=== PATIENT | female | born 1965 | race Caucasian/White ===

== ENCOUNTER 2016-06-09 20:03 | Emergency (ER) | payer BC ==
--- NOTE | ~2016-06-09 | CR142 ---
[facility] A Service of [facility] & [facility] RADIOLOGY TEXT RESULTS PATIENT: DIOGENES QUINONES LOCATION: SED : 61 UNIT #: [id number] AGE: [address]: Del Cam MD SEX: F ORDER DR: [id number] [address] [address] [id number] E MR#: [id number] Acc #: [id number] NAME: DIOGENES QUINONES : 1965 SEX: F STUDY DATE/TIME: 06/09/2016 19:51 UNIT: SED ROOM: STUDY DESCRIPTION: CR Hand Min 3 Views Rt Attending Physician: Del Cam M.D. Ordering Physician: Del Cam M.D. Primary Care Physician: Alma Martinez M.D. MEDICAL IMAGING REPORT This report is preliminary unless electronic signature is present. EXAM Right hand 3 views HISTORY Hand pain and bruising since yesterday. No injury. FINDINGS AP, lateral, and oblique projections of the hand show good mineralization with normal carpal, metacarpal, and phalangeal anatomy without indication of fracture, dislocation, or soft tissue radiopaque foreign body. IMPRESSION Normal hand. Dictated by... Salvador Luna M.D. THIS IS AN ELECTRONICALLY VERIFIED REPORT Salvador Luna M.D. at 06/10/2016 3:55 PM DFL/adore TD: 06/10/2016 08:53 JOB #: [id number] MEDICAL IMAGING REPORT
[~2016-06-09 20:03] MED LIST: ALBUTEROL MININEB NEB; ALBUTEROL17 GM INH; ALBUTEROL20 ml; AMITRYPTYLINE PO; COUMADIN PO; COUMADIN10 MG PO; COUMADIN5 MG PO; COUMADIN7.5 MG PO; DILTIAZEM 24HR120 MG PO; FEVERFEW EXTRACT1 GM MC; LASIX20 MG PO; LOVENOX SUBQ; MAGNESIUM400 MG PO; METOPROLOL SUCC25 MG PO; MIGRANAL; PETADOLEX50 MG PO; PRILOSEC PO; RIZATRIPTAN10 M2 PO; SUMATRIPTAN SU100 MG PO; TOPAMAX200 MG PO; TOPAMAX50 MG PO; TOPIRAMATE200 M1 PO; VITAMIN B-COMPL1 CA1 PO; XYZAL5 MG PO; ZECUITY TD
[2016-06-09 20:20] LABS: INR 3.1; PROTHROMBIN TIME (PATIENT) 35.6 SECONDS (9.5-12.4)
[2016-07-23] MEDS ORDERED: SYMBICORT INH (13:46)
[2016-07-23] MEDS ORDERED: ALBUTEROL MININEB NEB (13:47)
[2016-07-23] MEDS ORDERED: METOPROLOL SUCC25 MG PO (14:18)
[2016-07-23] MEDS ORDERED: MECLIZINE HCL12.5 M2 PO (14:19)
== END 2016-06-09 20:40 | disposition home or self-care (01) ==
LOC: SED 20:03
PROVIDERS: Emergency Medicine
DX: S60.221A Contusion of right hand, initial encounter (principal); Z86.718 Personal history of other venous thrombosis and embolism; X58.XXXA Exposure to other specified factors, initial encounter; Y92.9 Unspecified place or not applicable
CPT/HCPCS: 36415; 73130; 85610; 99283

== ENCOUNTER → 2016-07-31 | Day surgery (SDC) | payer BC ==
[~2016-07-31] MED LIST changes: +ELIQUIS5 MG PO; +FAMOTIDINE20 M1 PO; +HEPARIN 51 UNIT/1 M IV; +HYDROCHLOROTHIA25 MG PO; +KEPPRA500 M1 PO; +MECLIZINE HCL12.5 M2 PO; +PERCOCET5/325 PO; +SYMBICORT INH
--- NOTE | ~2016-07-31 | OR ---
Unit #: [id number] #: [id number] Patient: DIOGENES QUINONES [id number] [address] [address] [id number] O MR#: [id number] NAME: DIOGENES QUINONES ROOM: Date of Procedure: 07/31/2016 Admission Date: 07/31/2016 Surgeon: Wilton Chau M.D. : 1965 Attending Physician: Wilton Chau M.D. Primary Care Physician: Alma Martinez M.D. OPERATIVE REPORT PROCEDURE PERFORMED Colonoscopy to cecum. INDICATIONS FOR PROCEDURE Father with colon cancer. MEDICATIONS Monitored anesthesia. POSTOPERATIVE FINDINGS Good prep. Normal exam to cecum. No polyps, masses, or colitis. PLAN Repeat colonoscopy in 5 years. DESCRIPTION OF PROCEDURE The patient was explained of the procedure, risks, and benefits along with risks and benefits of anesthesia. She was brought to the endoscopy room. Propofol anesthesia was given. Rectal exam was done, which was normal. Colonoscope was lubricated, passed up the rectum, advanced under direct vision all the way to the cecum. Cecum was identified by ileocecal valve and appendiceal orifice. I then started to pull the scope out carefully looking. No polyps, masses, or colitis were seen. Mucosa was normal and healthy. I retroflexed in the rectum and small hemorrhoids were seen. Scope was gently pulled out. She tolerated it well. Dictated by... Noemi Blackman/mena TD: 08/01/2016 00:09 JOB #: [id number] Unit #: [id number] #: [id number] Patient: DIOGENES QUINONES OPERATIVE REPORT Page 1 of 1 X Wilton Chau MD X PROCEDURE OPERATIVE NOTE
== END | disposition home or self-care (01) ==
LOC: COPS 10:43
DX: Z12.11 Encounter for screening for malignant neoplasm of colon (principal); Z80.0 Family history of malignant neoplasm of digestive organs; K64.9 Unspecified hemorrhoids

== ENCOUNTER 2016-08-08 17:15 | Emergency (ER) | payer BC ==
--- NOTE | ~2016-08-08 | CR230 ---
[facility] A Service of [facility] & [facility] RADIOLOGY TEXT RESULTS PATIENT: DIOGENES QUINONES LOCATION: [facility] : 61 UNIT #: [id number] AGE: [address]: BHAVIN SIMON SEX: F ORDER DR: [id number] [facility] [address] [place], [place] [address] [id number] E MR#: [id number] Acc #: [id number] NAME: DIOGENES QUINONES. : 1965 SEX: F STUDY DATE/TIME: 08/08/2016 17:59 UNIT: [facility] ROOM: STUDY DESCRIPTION: CR Shoulder Min 2 View Rt Attending Physician: Bhavin Simon Aprn Ordering Physician: Bhavin Simon Aprn Primary Care Physician: Alma Martinez M.D. MEDICAL IMAGING REPORT This report is preliminary unless electronic signature is present EXAM Right shoulder, 4 views. DATE OF EXAM 08/08/2016 HISTORY Right shoulder pain and swelling, status post fall 08/07/2016. FINDINGS AP view with internal and external rotation of the shoulder girdle shows satisfactory relationship of the humeral head and glenoid fossa. The joint space is normal. There is no identifiable fracture or dislocation or bony destructive process about the shoulder girdle anatomy. The acromioclavicular joint is normal. There is no radiopaque foreign body in the region. IMPRESSION Normal right shoulder. Dictated by... Akin Gabriel M.D. THIS IS AN ELECTRONICALLY VERIFIED REPORT Akin Gabriel M.D. at 08/09/2016 3:16 PM SHOSHANA/richardson TD: 08/08/2016 22:05 JOB #: [id number] MEDICAL IMAGING REPORT Page 1 of 1 COPY
[~2016-08-08 17:15] MED LIST changes: -ELIQUIS5 MG PO; -FAMOTIDINE20 M1 PO; -HEPARIN 51 UNIT/1 M IV; -HYDROCHLOROTHIA25 MG PO; -KEPPRA500 M1 PO; -PERCOCET5/325 PO
== END 2016-08-08 19:11 | disposition home or self-care (01) ==
LOC: CFTX 17:15
DX: S46.011A Strain of muscle(s) and tendon(s) of the rotator cuff of right shoulder, initial encounter (principal); I10 Essential (primary) hypertension; J45.909 Unspecified asthma, uncomplicated; Z88.0 Allergy status to penicillin; Z88.8 Allergy status to other drugs, medicaments and biological substances; Z79.899 Other long term (current) drug therapy; Z87.891 Personal history of nicotine dependence; W18.30XA Fall on same level, unspecified, initial encounter; Y92.098 Other place in other non-institutional residence as the place of occurrence of the external cause
CPT/HCPCS: 73030; 99283

== ENCOUNTER 2016-10-13 18:23 | Emergency (ER) | payer BC ==
--- NOTE | ~2016-10-13 | CR72 ---
[facility] A Service of [facility] & [facility] RADIOLOGY TEXT RESULTS PATIENT: DIOGENES QUINONES LOCATION: [facility] : 61 UNIT #: [id number] AGE: [address]: Martell Lopez MD SEX: F ORDER DR: [id number] [facility] [address] [place], [place] [address] [id number] E MR#: [id number] Acc #: [id number] NAME: DIOGENES QUINONES : 1965 SEX: F STUDY DATE/TIME: 10/13/2016 21:19 UNIT: [facility] ROOM: STUDY DESCRIPTION: CR Chest Single View Portable Attending Physician: Martell Lopez M.D. Ordering Physician: Martell Lopez M.D. Primary Care Physician: Alma Martinez M.D. MEDICAL IMAGING REPORT This report is preliminary unless electronic signature is present EXAM Portable chest, 10/13/2016. HISTORY Shortness of breath generalized weakness, lethargy and vomiting beginning today. Benign essential hypertension, asthma. FINDINGS The heart is normal in size. There is poor inspiratory result with ill-defined infiltrate in the left upper lobe which is stable compared with 08/18/2010, presumably representing fibrosis. Clinical correlation is recommended. Poor inspiratory result with bibasilar atelectasis. There are no pleural effusions. IMPRESSION Ill-defined infiltrate in the left upper lobe is stable compared with previous chest radiograph 08/18/2010. This presumably represents focal fibrosis but clinical correlation is recommended. Dictated by... Akin Gabriel M.D. THIS IS AN ELECTRONICALLY VERIFIED REPORT Akin Gabriel M.D. at 10/14/2016 2:20 PM SHOSHANA/richardson TD: 10/14/2016 01:20 JOB #: [id number] MEDICAL IMAGING REPORT Page 1 of 1 COPY
--- NOTE | ~2016-10-13 | CT71 ---
[facility] A Service of [facility] RADIOLOGY TEXT RESULTS PATIENT: DIOGENES QUINONES LOCATION: [facility] : 61 UNIT #: [id number] AGE: [address]: Martell Lopez MD SEX: F ORDER DR: [id number] [facility] [address] [place], [place] [address] [id number] E MR#: [id number] Acc #: [id number] NAME: DIOGENES QUINONES : 1965 SEX: F STUDY DATE/TIME: 10/13/2016 21:11 UNIT: [facility] ROOM: STUDY DESCRIPTION: CT Head Wo Contrast Attending Physician: Martell Lopez M.D. Ordering Physician: Martell Lopez M.D. Primary Care Physician: Alma Martinez M.D. MEDICAL IMAGING REPORT This report is preliminary unless electronic signature is present EXAM CT head without contrast, dated 10/13/2016. COMPARISON CT head with contrast, dated 03/24/2012. HISTORY Patient fell this morning with weakness, vomiting. Patient was lying on the floor all day. TECHNIQUE CT of the head was obtained without contrast in the axial plane as per the protocol. This CT exam was performed with one or more of the following radiation dose reduction techniques: automatic exposure control, adjustment of mA and/or kV according to patient size, and iterative reconstruction. FINDINGS There is a large hypodense lesion in the left frontal temporal extraaxial region with hyperdensity along its medial inner aspect abutting the brain. The hyperdense component is most prominent in the inferior left temporal portion of the hypodense lesion extending towards the floor of the middle cranial fossa on the left side. It measures about 7.5 mm in maximum thickness. The hypodense component is most prominent in the left frontal region, though it extends to the left temporal region also. Its maximum thickness is 1.7 cm in the left frontal aspect. There is effacement of the left lateral ventricle and a 1.5 cm midline shift to the right with trapping of the right lateral ventricle, particularly, the right temporal horn. It is new when compared to the prior study. Paranasal sinuses and mastoid air cells are well aerated. Bilateral anterior clinoid processes are pneumatized. Bones, orbits with the ocular structures are unremarkable. [facility] A Service of [facility] RADIOLOGY TEXT RESULTS PATIENT: DIOGENES QUINONES LOCATION: [facility] : 61 UNIT #: [id number] AGE: [address]: Martell Lopez MD SEX: F ORDER DR: IMPRESSION 1. Large left fronto- temporal subdural hematoma is noted. It has a hypodense component measuring up to 1.7 cm in maximum thickness in the left lateral fronto- temporal region. It has a more medial inner hyperdense component, most prominent in the left temporal region measuring about 7.5 mm in thickness. It is most suggestive of a subdural hematoma of varying age, including acute to subacute components. 2. Severe midline shift to the right measuring 1.5 cm with trapping of the right lateral ventricle, particularly the right temporal horn. 3. Findings were discussed with Dr. Martell Lopez of [facility] at 10 p.m. on 10/13/2016. Dictated by... Erin Jones M.D. THIS IS AN ELECTRONICALLY VERIFIED REPORT Erin Jones M.D. at 10/14/2016 12:00 PM CPR/jt TD: 10/14/2016 01:26 JOB #: [id number] MEDICAL IMAGING REPORT Page 1 of 1 COPY
--- NOTE | ~2016-10-13 | EKG ---
PATIENT: DIOGENES QUINONES UNIT #: [id number] Ventricular Rate: 77 BPM Atrial Rate: 77 BPM P-R Interval: 152 ms QRS Duration: 86 ms Q-T Interval: 400 ms QTC Calculation(Bezet): 452 ms P [place]: 20 degrees Calculated R [place]: -20 degrees Calculated T [place]: 18 degrees Diagnosis Line: Normal sinus rhythm Diagnosis Line: Moderate voltage criteria for LVH, may be normal Diagnosis Line: variant Diagnosis Line: Borderline ECG Diagnosis Line: No previous ECGs available Diagnosis Line: Confirmed by TOMEKA DELCID MD ([id number]) on Diagnosis Line: 10/15/2016 10:32:24 AM INTERPRETING MD: BHAVIN GUIDO
--- NOTE | ~2016-10-13 | CR72 ---
[facility] A Service of [facility] & [facility] RADIOLOGY TEXT RESULTS PATIENT: DIOGENES QUINONES LOCATION: [facility] : 61 UNIT #: [id number] AGE: [address]: Martell Lopez MD SEX: F ORDER DR: [id number] [facility] [address] [place], [place] [address] [id number] E MR#: [id number] Acc #: [id number] NAME: DIOGENES QUINONES : 1965 SEX: F STUDY DATE/TIME: 10/13/2016 22:22 UNIT: [facility] ROOM: STUDY DESCRIPTION: CR Chest Single View Portable Attending Physician: Martell Lopez M.D. Ordering Physician: Martell Lopez M.D. Primary Care Physician: Alma Martinez M.D. MEDICAL IMAGING REPORT This report is preliminary unless electronic signature is present EXAM Portable chest INDICATIONS Endotracheal tube placement. FINDINGS This portable view of the chest is compared with one from earlier today. An endotracheal tube has been added and the tip is 2 cm above the marcella. There are low lung volumes. There appear to be posttraumatic change involving the left ribs. No infiltrates are visible. The heart size is normal. Dictated by... Alvarez Dunn M.D. THIS IS AN ELECTRONICALLY VERIFIED REPORT Alvarez Dunn M.D. at 10/14/2016 5:49 AM SALMA/tiffanie TD: 10/14/2016 02:02 JOB #: [id number] MEDICAL IMAGING REPORT Page 1 of 1 COPY
[2016-10-13 20:25] LABS: BASOPHIL% 0.2 % (0-2.5); EOSINOPHIL% 0.3 % (0.0-7.0); HEMATOCRIT 39.1 % (35.0-45.0); HEMOGLOBIN 12.7 gm/dL (12.0-16.0); LYMPHOCYTE# 1.1 X10e3 (1.0-3.5); LYMPHOCYTE% 11.1 % (17.0-45.0); MEAN CELL VOLUME 93.7 FL (83-96); MEAN CORPUSCULAR HEMOGLOBIN 30.5 PG (28-34); MEAN CORPUSCULAR HGB CONC 32.5 g/dL (30-36); MEAN PLATELET VOLUME 7.5 FL (6.5-11.5); MONOCYTE# 0.6 X10e3 (0-1.0); MONOCYTE% 5.9 % (3.0-12.0); NEUTROPHIL# 8.4 X10e3 (1.5-7.1); NEUTROPHIL% 82.5 % (40-75); PLATELET COUNT 147 X10e3 (140-420); RED BLOOD COUNT 4.17 X10e (3.90-5.30); RED CELL DISTRIBUTION WIDTH 13.6 % (11.0-15.5); WHITE BLOOD COUNT 10.1 X10e3 (4.0-10.5)
[2016-10-13 20:33] LABS: DIFF IND NO
[2016-10-13 20:43] LABS: URINE SOURCE CLEAN CATCH
[2016-10-13 20:52] LABS: ALBUMIN SERUM 3.7 g/dL (3.5-5.0); BILIRUBIN, DIRECT 0.1 mg/dL (0.0-0.2); BILIRUBIN,INDIRECT 0.5 mg/dL (0.0-0.9); BILIRUBIN,TOTAL 0.6 mg/dL (0.2-2.0); BUN/CREATININE RATIO 15.55; CALCIUM SERUM 8.7 mg/dL (8.4-10.2); CREATININE SERUM 0.9 mg/dL (0.6-1.4); PROTEIN TOTAL SERUM 7.4 g/dL (6.0-8.3)
[2016-10-13 20:53] LABS: URINE APPEARANCE CLOUDY; URINE BILIRUBIN NEG (NEG); URINE BLOOD NEG (NEG); URINE COLOR DK YELLOW; URINE GLUCOSE NEG (NEG); URINE KETONE NEG (NEG); URINE LEUKOCYTE ESTERASE NEG (NEG); URINE NITRATE NEG (NEG); URINE PROTEIN NEG (NEG); URINE SPECIFIC GRAVITY 1.034 (1.003-1.035)
[2016-10-13 20:57] LABS: CULTURE INDICATED? NO
[2016-10-13 21:07] LABS: AMPHETAMINE NEG (NEG); BARBITURATES NEG (NEG); BENZODIAZEPINES NEG (NEG); COCAINE NEG (NEG); MARIJUANA NEG (NEG); OPIATES NEG (NEG); TRICYCLIC ANTIDEPRESSANTS POS (NEG); U METHADONE NEG (NEG)
[2016-10-13 22:31] LABS: POC - CKMB 2.4 ng/mL (0.0-7.9); POC - TROPONIN <0.05 ng/mL (<=0.05)
[2016-10-13 22:59] LABS: INR 2.6; PROTHROMBIN TIME (PATIENT) 28.5 SECONDS (10.0-11.7)
== END 2016-10-13 23:58 | disposition hospice, home (50) ==
LOC: CED 18:23
PROVIDERS: Emergency Medicine
DX: S06.5X0A Traumatic subdural hemorrhage without loss of consciousness, initial encounter (principal); I10 Essential (primary) hypertension; E66.9 Obesity, unspecified; F41.9 Anxiety disorder, unspecified; Z86.718 Personal history of other venous thrombosis and embolism; Z88.0 Allergy status to penicillin; Z88.1 Allergy status to other antibiotic agents; Z88.8 Allergy status to other drugs, medicaments and biological substances; Z79.899 Other long term (current) drug therapy; W19.XXXA Unspecified fall, initial encounter
CPT/HCPCS: 31500; 36415; 51702; 70450; 71010; 80048; 80076; 80307; 81003; 82550; 82553; 84443; 84484; 84703; 85025; 85610; 86900; 86901; 93005; 94002; 96365; 96375; 99291; J0330; J2250; J3010; J3430

== ENCOUNTER 2016-11-24 13:51 | Inpatient (IN) | payer BC ==
[~2016-11-24] VITALS: Ht 170.2 cm; Wt 118.4 kg
--- NOTE | ~2016-11-24 | DS ---
Unit #: [id number] #: [id number] Patient: DIOGENES QUINONES [id number] [address] [address] [id number] I MR#: [id number] NAME: DIOGENES QUINONES ROOM: 339 Age: 51 Sex: F Admission Date: 11/24/2016 : 1965 Discharge Date: 11/26/2016 Attending Physician: Alma Martinez M.D. Referring Physician: Alma Martinez M.D. Primary Care Physician: Alma Martinez M.D. DISCHARGE SUMMARY DISCHARGE DIAGNOSES 1. Lower extremity deep venous thrombosis. 2. History of deep venous thrombosis in the past. 3. History of subdural hematoma. 4. History of migraine headache. 5. Hypertension. 6. Obesity. DISCHARGE MEDICATIONS 1. Hydrochlorothiazide 25 mg p.o. daily. 2. Percocet 5/325, one tablet p.o. q.4-6 p.r.n. for pain in the lower extremity. 3. Ventolin two puffs inhaler q.6 p.r.n. for shortness of air. 4. Eliquis 10 mg b.i.d. 5. Keppra 500 mg p.o. b.i.d. 6. Pepcid 20 mg p.o. b.i.d. CONSULTS DURING THIS HOSPITAL STAY Dr. Kim - Hematology. LABS AND DIAGNOSTICS AND PROCEDURES DURING THIS HOSPITAL STAY Lower extremity ultrasound showed a relatively recent new DVT on the left. HISTORY OF PRESENT HOSPITAL STAY AND ACTIVE PROBLEMS Please refer to H and P for initial presentation on this female which was dictated by me. ACTIVE PROBLEMS AND DIAGNOSES 1. 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 Patient initially was on Coumadin. Unfortunately, she had an event when she fell and sustained a subdural hematoma. Since then, patient was on only subcu heparin. She noticed left lower extremity pain and swelling, went to see her primary care physician, Dr. Martinez, who did the ultrasound which ultrasound showed a relatively new recent recurrent DVT. Patient was evaluated by Dr. Kim and started on Eliquis. Patient also was evaluated by PT/OT and she is currently stable to be discharged on Eliquis with outpatient followup with Dr. Kim. 2. History of subdural hematoma, as above. Patient needs to be extremely careful with the fall precautions which was discussed on numerous occasions with this patient. Again, status post PT/OT evaluation, stable to be discharged home. 3. History of migraine headaches, stable. 4. Hypertension, started on some hydrochlorothiazide. 5. Obesity. Patient would benefit with some weight loss. Unit #: [id number] #: [id number] Patient: DIOGENES QUINONES DISCHARGE MEDICATIONS As above. DISPOSITION Going home with outpatient followup with Dr. Martinez and outpatient followup with Dr. Kim. Dictated by... Yobany Gordon M.D. OC/df TD: 11/27/2016 05:40 JOB #: [id number] DISCHARGE SUMMARY Page 1 of 1 X Yobany Gordon MD X DISCHARGE SUMMARY
--- NOTE | ~2016-11-24 | BMI ---
[facility] Nutrition Therapy DATE: 11/25/16 Patient: DIOGENES QUINONES Physician: MAHESH Address: [address] [place] [address] ROAD Room/Bed: [address] [place] [address], Zip: [place] [address] Admit Date: 11/24/16 Date of : 61 Height: 5 7 Weight: 260 118.2 HIGH BMI NOTE: DX: 51 y/o female admitted with DVT No updated H&P available ANTHROPOMETRICS: Ht: 67", Wt: 118.2 kg, BMI: 40 (stage III obese) DIET: Healthy heart INTERVENTION: Restricted diet, meds/fluids per MD RECOMMENDATIONS: Continue healthy heart diet to promote a gradual weight loss towards a healthy BMI range. If patient has history of diabetes add consistent carb restriction. Respectfully, Lucía Cam RD, LD [facility] cc: client file
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
[~2016-11-24 13:51] MED LIST changes: -ELIQUIS5 MG PO; -FAMOTIDINE20 M1 PO; -HEPARIN 51 UNIT/1 M IV; -HYDROCHLOROTHIA25 MG PO; -KEPPRA500 M1 PO; -PERCOCET5/325 PO
[2016-11-24] MEDS ORDERED: ALBUTEROL17 GM INH (14:59)
[2016-11-24] MEDS ORDERED: FAMOTIDINE20 M1 PO (14:59)
[2016-11-24] MEDS ORDERED: KEPPRA500 M1 PO (15:01)
[2016-11-24] MEDS ORDERED: HEPARIN 51 UNIT/1 M IV (15:18)
[2016-11-24 15:24] LABS: BASOPHIL% 0.5 % (0-2.5); EOSINOPHIL# 0.2 X10e3 (0-0.7); EOSINOPHIL% 2.4 % (0.0-7.0); HEMATOCRIT 36.3 % (35.0-45.0); HEMOGLOBIN 12.6 gm/dL (12.0-16.0); LYMPHOCYTE# 1.5 X10e3 (1.0-3.5); LYMPHOCYTE% 17.1 % (17.0-45.0); MEAN CELL VOLUME 93.6 FL (83-96); MEAN CORPUSCULAR HEMOGLOBIN 32.4 PG (28-34); MEAN CORPUSCULAR HGB CONC 34.6 g/dL (30-36); MEAN PLATELET VOLUME 7.4 FL (6.5-11.5); MONOCYTE# 0.8 X10e3 (0-1.0); MONOCYTE% 9.3 % (3.0-12.0); NEUTROPHIL# 6.3 X10e3 (1.5-7.1); NEUTROPHIL% 70.7 % (40-75); PLATELET COUNT 183 X10e3 (140-420); RED BLOOD COUNT 3.88 X10e (3.90-5.30); RED CELL DISTRIBUTION WIDTH 13.9 % (11.0-15.5); WHITE BLOOD COUNT 8.9 X10e3 (4.0-10.5)
[2016-11-24 15:25] LABS: DIFF IND NO
[2016-11-24 15:36] LABS: PARTIAL THROMBOPLASTIN TIME 24.9 SECONDS (23.5-31.3)
[2016-11-24 15:46] LABS: PROTHROMBIN TIME (PATIENT) 11.1 SECONDS (10.0-11.7)
[2016-11-24 15:48] LABS: BILIRUBIN, DIRECT 0.2 mg/dL (0.0-0.2); BILIRUBIN,TOTAL 1.2 mg/dL (0.2-2.0); BUN/CREATININE RATIO 13.63; CALCIUM SERUM 9.1 mg/dL (8.4-10.2); CREATININE SERUM 1.1 mg/dL (0.6-1.4); GLOM FILT RATE Estimated 57.3 mL/min (>60); POTASSIUM 3.6 mmol/L (3.5-5.1); PROTEIN TOTAL SERUM 8.2 g/dL (6.0-8.3)
[2016-11-25 07:59] LABS: BASOPHIL% 0.7 % (0-2.5); EOSINOPHIL# 0.2 X10e3 (0-0.7); EOSINOPHIL% 4.5 % (0.0-7.0); HEMATOCRIT 31.9 % (35.0-45.0); HEMOGLOBIN 10.9 gm/dL (12.0-16.0); LYMPHOCYTE# 1.6 X10e3 (1.0-3.5); LYMPHOCYTE% 29.6 % (17.0-45.0); MEAN CELL VOLUME 93.6 FL (83-96); MEAN CORPUSCULAR HEMOGLOBIN 31.9 PG (28-34); MEAN CORPUSCULAR HGB CONC 34.1 g/dL (30-36); MEAN PLATELET VOLUME 7.2 FL (6.5-11.5); MONOCYTE# 0.6 X10e3 (0-1.0); MONOCYTE% 11.1 % (3.0-12.0); NEUTROPHIL% 54.1 % (40-75); PLATELET COUNT 184 X10e3 (140-420); RED BLOOD COUNT 3.41 X10e (3.90-5.30); RED CELL DISTRIBUTION WIDTH 14.1 % (11.0-15.5); WHITE BLOOD COUNT 5.5 X10e3 (4.0-10.5)
[2016-11-25 08:03] LABS: DIFF IND NO
[2016-11-26 05:48] LABS: HEMATOCRIT 32.6 % (35.0-45.0); HEMOGLOBIN 11.1 gm/dL (12.0-16.0); RED BLOOD COUNT 3.46 X10e (3.90-5.30); RED CELL DISTRIBUTION WIDTH 13.8 % (11.0-15.5); WHITE BLOOD COUNT 6.1 X10e3 (4.0-10.5)
[2016-11-26 06:54] LABS: CALCIUM SERUM 8.6 mg/dL (8.4-10.2); CREATININE SERUM 0.8 mg/dL (0.6-1.4); GLOM FILT RATE Estimated 84.2 mL/min (>60); POTASSIUM 3.8 mmol/L (3.5-5.1)
[2016-11-26] MEDS ORDERED: ELIQUIS5 MG PO (20:23)
[2016-11-26] MEDS ORDERED: HYDROCHLOROTHIA25 MG PO (20:25)
[2016-11-26] MEDS ORDERED: PERCOCET5/325 PO (20:26)
== END 2016-11-26 21:00 | disposition home or self-care (01) | DRG 300 ==
LOC: CED 13:51 → C3A PCU 16:14 → CEDOF 16:14 → CED 16:31 → C3A PCU 22:07 → CEDOF 22:07 → C3A PCU 22:07
PROVIDERS: Emergency Medicine; Hospitalist; Physician Assistant Medical
DX: I82.431 Acute embolism and thrombosis of right popliteal vein (principal); Z68.41 Body mass index [BMI] 40.0-44.9, adult; I10 Essential (primary) hypertension; E66.01 Morbid (severe) obesity due to excess calories; Z86.718 Personal history of other venous thrombosis and embolism; G43.909 Migraine, unspecified, not intractable, without status migrainosus
CPT/HCPCS: 36415; 80048; 80076; 85025; 85027; 85610; 85730; 94760; 97161; 97166; 99284; G8978-GP; G8979-GP; G8980-GP; G8987-GO; G8988-GO; G8989-GO; J1644

== ENCOUNTER → 2016-11-24 | Outpatient (CLI) | payer BC ==
[~2016-11-24] MED LIST changes: +ELIQUIS5 MG PO; +FAMOTIDINE20 M1 PO; +HEPARIN 51 UNIT/1 M IV; +HYDROCHLOROTHIA25 MG PO; +KEPPRA500 M1 PO; +PERCOCET5/325 PO
--- NOTE | ~2016-11-24 | US85 ---
[facility] A Service of [facility] & [facility] RADIOLOGY TEXT RESULTS PATIENT: DIOGENES QUINONES LOCATION: [facility] : 61 UNIT #: [id number] AGE: [address]: Alma Martinez MD SEX: F ORDER DR: [id number] [facility] [address] [place], [place] [address] [id number] O MR#: [id number] Acc #: [id number] NAME: DIOGENES QUINONES : 1965 SEX: F STUDY DATE/TIME: 11/24/2016 13:29 UNIT: [facility] ROOM: STUDY DESCRIPTION: [facility] [employer] [facility] Attending Physician: Alma Martinez M.D. Referring Physician: Alma Martinez M.D. Ordering Physician: Alma Martinez M.D. Primary Care Physician: Alma Martinez M.D. MEDICAL IMAGING REPORT This report is preliminary unless electronic signature is present EXAM Left lower extremity venous ultrasound. INDICATION Left leg pain for 5 days. History of DVT. The patient is on blood thinners since October 19. FINDINGS Ultrasound of the left lower extremity showed extensive thrombus distending the venous system down through the distal veins. IMPRESSION Extensive recent appearing left DVT. Dictated by... Alvarez Dunn M.D. THIS IS AN ELECTRONICALLY VERIFIED REPORT Alvarez Dunn M.D. at 11/24/2016 9:55 PM SALMA/dg TD: 11/24/2016 21:23 JOB #: [id number] MEDICAL IMAGING REPORT Page 1 of 1 COPY
== END | disposition home or self-care (01) ==
LOC: CNIV 12:56
DX: M79.89 Other specified soft tissue disorders (principal); I82.402 Acute embolism and thrombosis of unspecified deep veins of left lower extremity
CPT/HCPCS: 93971